=== PATIENT | male | born 1950 | race Caucasian/White ===

== ENCOUNTER → 2022-11-21 | Outpatient (CLI) | payer MEDICARE, SELFPAY ==
[2022-11-21 15:15] LABS: PSA,Total - Annual Screen 3.89 ng/mL (0.00-4.00)
== END | disposition home or self-care (01) ==
LOC: LAB 13:48
PROVIDERS: PCP Internal Medicine Infectious Disease; Referring Provider Nurse Practitioner; Visit Provider Nurse Practitioner
DX: Z12.5 Encounter for screening for malignant neoplasm of prostate (principal)
CPT/HCPCS: 36415; 84153; G0103

== ENCOUNTER → 2023-02-21 | Outpatient (CLI) | payer MEDICARE, SELFPAY ==
--- OUTSIDE RECORDS SUMMARY | 2023-02-21 11:35 | XMS RPT_ITS | CCD ---
Author Name Unknown Address [address] [place] [address] Organization [facility] Care Team Providers Care Delivery Man Name Role Phone NEHA TEAGUE MD Consulting Unavailable NEHA TEAGUE MD Referring Unavailable JOHN LEVI MD Admitting Unavailable JOHN LEVI MD Primary Care Unavailable JOHN LEVI MD Attending Unavailable PROVIDER, UNKNOWN Consulting Unavailable PROVIDER, UNKNOWN Consulting Unavailable NEHA TEAGUE MD Primary Care Unavailable NEHA TEAGUE MD Consulting Unavailable NEHA TEAGUE MD Attending Unavailable NEHA TEAGUE MD Admitting Unavailable PROVIDER, UNKNOWN Consulting Unavailable PROVIDER, UNKNOWN Consulting Unavailable Allergies Allergy Classification Reported Allergen(s) Allergy Type Date of Onset Reaction(s) Facility (1 source) 05/17/22 Bed Bugs- Confirmed; Translations: [05/17/22 Bed Bugs- Confirmed] Propensity to adverse reactions (disorder) [facility] Repository Problems Problem Classification Problem Date Documented Da te Episodic/Chronic Deficiency and other anemia (1 source) Iron deficiency anemia, unspecified; Translations: [Iron deficiency anemia, unspecified] Onset: 2023 Episodic Results Test Name Value Interpretation Reference Range Facil ity Encounters Encounter Date Encounter Type Care Provider Facility Start: 2023 End[facility]: 05-17-2022 End: 05-18-[facility] Payers Date Payer Category Payer Unknown [id number] 1950 Unknown [id number] Medicaid [id number] Discharge summary note 05-20-2022 Note Date & Type Note Facility 05-20-2022 Note [facility] DISCHARGE SUMMARY NAME ACCOUNT SEX AGE ADMIT DISCHARGE PT MED. RECORD# NUMBER DATE DATE TYPE STEPHEN RIZO [id number] Nette 72 05/17/22 05/18/22 2 L [id number] ROOM: 310 DATE OF : 1950 ATTENDING PHYSICIAN: John Levi ADMITTING DIAGNOSIS: FINAL DIAGNOSES: 1. Acute right knee pain, improved. 2. Hypertension, stable blood pressure. CONSULTING PHYSICIAN: Dr. Nielsen. HOSPITAL COURSE: For full history and physical and consultation, please see chart. Brief summary, see below. This is a 72-year-old male with past medical history significant for hypertension, hypercholesterolemia, on one medication. He complained of some right hip pain. He was seen by his primary care. He also has been evaluated for pain in his right knee that has become progressive. It was to the point where he was unable to bear any weight on it. He called the squad, came to the emergency room. X-ray did not reveal any fracture. Apparently he was unable to get up and around on his own. There was attempt to educate him on a walker. However, he did not feel he could do this at home himself. He was admitted overnight for observation, analgesic cream, as well as acetaminophen and orthopedic evaluation. Initially, orthopedics was going to complete a local knee injection. However, when he did evaluate the patient, the pain was improving, it was not swollen, and he did not feel he needed any intervention, just conservative measures and follow-up with orthopedics if pain worsens. He was able to mobilize with physical therapy. Today, on the date of discharge, he did not complain of pain. He states he has the availability of a walker at home. His vital signs are stable, and he is afebrile. Physical therapy reports he is able to ambulate. DISPOSITION: Condition upon discharge improved. MEDICATIONS ON DISCHARGE: (1) Acetaminophen 650 mg q.4 hours prn. (2) Diclofenac gel twice daily to affected knee. (3) Continue amlodipine 10 mg daily. DISCHARGE INSTRUCTIONS/PLAN: No smoking or alcoholic beverages, regular diet. Increase activity as tolerated, use walker for ambulation. He states he has one available. If pain increases, make appointment with [facility]. Follow up with Dr. Teague on 05/20/22 at 11:30 a.m. He was discharged home. He has outpatient follow-up. Page 1 of 2 STEPHEN RIZO Discharge Summary STEPHEN Anjali JUAN FNATASHA : 1950 Dictated by frederic Dave for Dr. Levi. I evaluated the patient myself,the accurate E&M above is done by me Dimitri Levi MD Dictated By: John Levi MD 05/18/22 12:39 JOB #: [id number] Transcribed By: emerald 05/18/22 19:32 Electronically signed by: E-Sign: JOHN LEVI MD 05/20/22 11:15 Page 2 of 2 STEPHEN RIZO Discharge Summary [facility] History and physical note 05-20-2022 Note Date & Type Note Facility 05-20-2022 [facility] HISTORY & PHYSICAL NAME ACCOUNT SEX AGE ADMIT DISCHARGE PT MED. RECORD# NUMBER DATE DATE TYPE DARRIUS [id number] M 72 05/17/22 3 STEPHEN Alba [id number] ROOM: ER DATE OF : 50 DICTATING PHYSICIAN: John Levi ADMITTING DIAGNOSES: 1. Left knee pain. 2. Inability to ambulate. CHIEF COMPLAINT: Left knee pain. HISTORY OF PRESENT ILLNESS: This 72-year-old gentleman who had a history of hypertension and has been treated. The patient complained about some right hip pain a few weeks ago, and he seen his primary care. He also has been evaluated for pain in the right knee, which has been progressive. In the last few days, the patient's knee pain got worse. Today, the patient was not able to bear any weight on it. He could not get up and around, and he called the squad. He was brought to the emergency room. In the emergency room, the evaluation did not reveal any significant abnormality. X-ray did not reveal any evidence of fracture, and no acute osseous abnormality. There was no soft tissue swelling. There was trace suprapatellar effusion. When I saw the patient myself, his symptoms are as above. He had significant pain. It is hard for him to even bend the knee according to him. When we tried to do that, he had a lot of pain associated with this. PAST MEDICAL HISTORY: Remarkable for (1) Hypertension. (2) Urinary retention in the past. (3) Hypercholesterolemia. PAST SURGICAL HISTORY: The patient did have a Serna catheter insertion in the past for urinary retention. MEDICATIONS: The patient is taking amlodipine 10 mg daily. ALLERGIES: He has no known drug allergies. FAMILY HISTORY: Both parents of cancer. SOCIAL HISTORY: The patient is . He does not smoke or drink alcohol. He does chew tobacco. He drinks beer according to him one to two at most a day. REVIEW OF SYSTEMS: The patient denies any fever, chills, or night sweats. No weight loss. He did gain some weight. He denied headache, blurry vision, earache, or sore throat. No neck pain. No chest pain, shortness of breath, or cough. No nausea or Page 1 of 3 STEPHEN RIZO History & Physical STEPHEN RIZO :1950 vomiting, abdominal pain, diarrhea, constipation, difficulty with urination, increased frequency or burning, and no skin rashes. PHYSICAL EXAMINATION GENERAL APPEARANCE: This is a 72-year-old gentleman lying in bed fairly comfortable at the time of assessment. VITAL SIGNS: Vital signs revealed blood pressure of 160/75, respirations 14, heart rate 72, and saturation on room air is 91%. HEENT: Normocephalic and atraumatic. Pupils are round, equal, and reactive. Tongue to midline. NECK: Neck is supple. LUNGS: Clear bilaterally. HEART: Regular. ABDOMEN: Soft. EXTREMITIES: Revealed no edema. Examination of the right knee has revealed the following: There is very limited bending ability of the knee due to the significant pain and mild anterior swelling; otherwise, no other abnormalities were noted. DIAGNOSTIC DATA: Laboratory data revealed a white count of 5.3, hemoglobin 12.2, hematocrit 38. Sodium is 138, potassium 3.9, BUN 17, creatinine 0.96. IMPRESSION: 3. Acute right knee pain limiting the patient's ability to move. The patient is not a candidate to use a walker and maybe some sort of assistive device. The patient cannot handle this at home, and he lives by himself. He will need management that way. The etiology of his knee pain: He denied any injury to the knee, but x-ray did not reveal any fracture or serious swelling. At this point, the differential diagnosis would be mostly based on osteoarthritis with aggravating factors such as an injury or overuse. 4. Hypertension, appeared to be stable on treatment. 5. Severe knee pain. The patient's Tylenol works some. He did receive an IV in the emergency room, but according to him it makes him feel funny and he did not like that. When I explained to him it is habit forming, he did not want any significant opioids. PLAN: 1. We will admit the patient to observation. 2. Social Service consult. Page 2 of 3 STEPHEN RIZO History & Physical STEPHEN RIZO :1950 3. Orthopedic consult. 4. We will use local NSAIDS in the form of diclofenac gel. 5. We will order physical therapy and plan for discharge. Likely, the patient will need some rehabilitation to improve his function and increase his ability to get back on his feet. 6. We will use deep venous thrombosis prophylaxis with Lovenox and continue treatment for hypertension. Dictated By: John Levi MD 05/17/22 15:00 JOB #: [id number] Transcribed By: am 05/17/22 15:03 Electronically signed by: E-Sign: JOHN LEVI MD 05/20/22 11:15 Update to H&P: [ ] No changes: I have examined the patient and reviewed the H&P and there are no changes. [ ] As previously dictat (more content not included)... [facility] Summary Purpose Family History No Family History Records Found Advance Directives No Advanced Directives Records Found Additional Source Comments (unrecognized sect ion and content) No Status Records Found INFORMATION SOURCE (unrecogn ized section and content) FOR RECORDS PERTAINING TO PATIENTS WHO ARE OR HAVE BEEN ENROLLED IN A CHEMICAL DEPENDENCY/SUBSTANCEABUSE PROGRAM, SOME INFORMATION MAY BE OMITTED. This clinical summary was aggregated from multiple sources. Caution should be exercised in using it in the provision of clinical care. This summary normalizes information from multiple sources, and as a consequence, information in this document may materially change the coding, format and clinical context of patient data. In addition, data may be omitted in some cases. CLINICAL DECISIONS SHOULD BE BASED ON THE PRIMARY CLINICAL RECORDS. [employer] [facility]. provides no warranty or guarantee of the accuracy or completeness of information in this document.
== END | disposition home or self-care (01) ==
LOC: LAB 10:32
PROVIDERS: PCP Student in an Organized Health Care Education/Training Program; Referring Provider Urology; Visit Provider Urology
DX: Z87.440 Personal history of urinary (tract) infections (principal)
CPT/HCPCS: 87077; 87086; 87088; 87186